=== PATIENT | female | born 1995 | race Two or more races ===

== ENCOUNTER 2020-10-02 02:49 | Emergency (ER) | payer MEDICAID ==
[~2020-10-02] VITALS: Ht 165.1 cm; Wt 70.0 kg
[2020-10-02] MEDS ORDERED: IPRATROPIUM BROMIDE (0.02%) 0.5MG/2.5ML NEB HHN STA (03:18)
[2020-10-02] MEDS ORDERED: ALBUTEROL (0.083%) 2.5MG/3ML NEB HHN STA (03:18)
[2020-10-02] MEDS ORDERED: ALBU6.7H9 INH (04:56)
[2020-10-02 05:10] VITALS: BP 99/53
== END 2020-10-02 05:34 | disposition home or self-care (01) ==
LOC: ER 02:49
DX: J45.909 Unspecified asthma, uncomplicated (principal); F12.10 Cannabis abuse, uncomplicated; Z98.890 Other specified postprocedural states
CPT/HCPCS: 94640; 99283; Z7610

== ENCOUNTER 2021-05-09 16:17 | Emergency (ER) | payer MEDICAID, OTHER ==
[~2021-05-09] VITALS: Ht 152.4 cm; Wt 73.0 kg
[~2021-05-09 16:17] MED LIST: ALBU6.7H9 INH
[2021-05-09] MEDS ORDERED: ACETAMINOPHEN 325MG TABLET PO ONE (16:30)
[2021-05-09] MEDS ORDERED: IBUP-2029 MT (18:11)
[2021-05-09] MEDS ORDERED: BENZ100C86 MT (18:11)
[2021-05-09] MEDS ORDERED: ACET650T37 MT (18:11)
[2021-05-09 18:19] VITALS: BP 122/72
== END 2021-05-09 18:46 | disposition home or self-care (01) ==
LOC: ER 16:17
DX: Z20.822 Contact with and (suspected) exposure to COVID-19 (principal); J45.909 Unspecified asthma, uncomplicated; Z98.890 Other specified postprocedural states
CPT/HCPCS: 87804; 99283; C9803; U0003; U0005

== ENCOUNTER 2021-08-08 19:57 | Emergency (ER) | payer OTHER ==
[~2021-08-08] VITALS: Ht 152.4 cm; Wt 59.0 kg
[~2021-08-08 19:57] MED LIST changes: +ACET650T37 MT; +BENZ100C86 MT; +IBUP-2029 MT
[2021-08-08 20:02] VITALS: BP 135/74
[2021-08-08] MEDS ORDERED: POLY10DR EACHEYE (20:57)
== END 2021-08-08 21:15 | disposition home or self-care (01) ==
LOC: ER 20:05
DX: H10.9 Unspecified conjunctivitis (principal)
CPT/HCPCS: 99283

== ENCOUNTER 2021-09-20 07:55 | Emergency (ER) | payer OTHER ==
[~2021-09-20] VITALS: Ht 152.4 cm; Wt 74.0 kg
[~2021-09-20 07:55] MED LIST changes: +POLY10DR EACHEYE
[2021-09-20 08:01] VITALS: BP 116/88
[2021-09-20] MEDS ORDERED: CLAR10 MT (08:37)
[2021-09-20] MEDS ORDERED: FLUT9.9S BOTHNSTRLS (08:37)
[2021-09-20] MEDS: LORATADINE 10MG TABLET PO SCH ×2 (09:09→09:11)
== END 2021-09-20 09:12 | disposition home or self-care (01) ==
LOC: ER 07:55
DX: O26.891 Other specified pregnancy related conditions, first trimester (principal); J30.9 Allergic rhinitis, unspecified; Z3A.11 11 weeks gestation of pregnancy
CPT/HCPCS: 99283

== ENCOUNTER 2024-08-27 16:40 | Emergency (ER) | payer MEDICAID, OTHER ==
[~2024-08-27] VITALS: Ht 157.5 cm; Wt 150.0 kg
[~2024-08-27 16:40] MED LIST changes: +ACET-3163 MT; -ACET650T37 MT; +ALBU6.7H3 INH; -ALBU6.7H9 INH; +CLAR10 MT; +FLUT9.9S BOTHNSTRLS
[2024-08-27 17:55] VITALS: PULSE 109; PULSE 99; RESP 22; O2SAT 95
[2024-08-27] MEDS: IPRATROPIUM/ALBUTEROL 0.5-3(2.5)MG/3ML NEB HHN ONE (17:55)
[2024-08-27] MEDS: ALBUTEROL (0.083%) 2.5MG/3ML NEB HHN ONE (18:03)
[2024-08-27 18:05] VITALS: PULSE 99; RESP 20; O2SAT 99
[2024-08-27] MEDS: DEXAMETHASONE 4MG TABLET PO ONE (18:19)
[2024-08-27] MEDS ORDERED: ALBU90AE INH (19:28)
[2024-08-27] MEDS ORDERED: P50 MT (19:28)
[2024-08-27 19:34] VITALS: BP 123/83; PULSE 99; RESP 20; TEMP 37; O2SAT 99
== END 2024-08-27 19:35 | disposition home or self-care (01) ==
LOC: ER 17:15
DX: J45.909 Unspecified asthma, uncomplicated (principal); F12.90 Cannabis use, unspecified, uncomplicated
CPT/HCPCS: 94640; 99283; J8540; Z7610 ×4; 94070; 94664